=== PATIENT | female | born 1990 | race Hispanic/Latino ===

== ENCOUNTER 2023-01-01 06:22 | Inpatient (IN) | payer OTHER ==
[2022-12-30 13:12] LABS: Hematocrit 34.8 % (34.9-44.5); Hemoglobin 11.7 g/dL (12.0-15.5); Platelet Count 295 10x3/uL (150-450)
[2022-12-30 13:51] LABS: Syphilis Antibody Nonreactive (Nonreactive); Syphilis Antibody Index 0.03 S/CO (<1.00 Non-Reactive)
[2022-12-30 13:52] LABS: HBSAg Index 0.22 S/CO (0-0.99); Hep B Surf Ag Non-Reactive S/CO (NonReactive)
[2023-01-01 07:13] VITALS: BMI 39.4
[2023-01-01 07:54] LABS: Fetal Membranes Rupture No Membranes Rupture (No Rupture)
[2023-01-01] MEDS ORDERED: hydrALAZINE 20 MG/ML VIAL SLOW IVP PRN ×2 (08:28→09:19)
[2023-01-01] MEDS ORDERED: Acetaminophen 500 MG TAB PO SCH (08:30)
[2023-01-01] MEDS ORDERED: Tranexamic Acid 1,000 MG/10 ML VIAL IVP PRN (09:19)
[2023-01-01] MEDS ORDERED: Misoprostol 200 MCG TAB PR PRN (09:19)
[2023-01-01] MEDS ORDERED: Methylergonovine 0.2 MG/ML VIAL IM PRN (09:19)
[2023-01-01] MEDS ORDERED: Promethazine HCl 25 MG/ML VIAL IM PRN ×2 (09:19→10:51)
[2023-01-01] MEDS ORDERED: Bicitra 30 ML UDCUP PO PRN (09:19)
[2023-01-01] MEDS ORDERED: Ondansetron PF 4 MG/2 ML Vial IVP PRN ×3 (09:19→10:51)
[2023-01-01] MEDS ORDERED: Famotidine/PF 20 mg/2ml Vial SLOW IVP PRN (09:19)
[2023-01-01] MEDS ORDERED: Oxytocin 30 units/NS 500 ML 500 ML IV SCH (09:30)
[2023-01-01] MEDS ORDERED: CEFAZOLIN 2 GM in Sodium Chloride 0.9% 100 ML IVPB SCH (09:30)
[2023-01-01] MEDS ORDERED: fentaNYL 50 mcg/mL 1 mL Vial ONE (09:31)
[2023-01-01] MEDS ORDERED: Morphine PF 10 MG/10 ML VIAL ONE (09:35)
[2023-01-01] MEDS ORDERED: fentaNYL 50 mcg/mL 1 mL Vial SLOW IVP PRN ×2 (09:37→10:51)
[2023-01-01] MEDS ORDERED: Phenylephrine 10 MG/ML VIAL ONE (10:33)
[2023-01-01] MEDS ORDERED: Ondansetron PF 4 MG/2 ML Vial ONE (10:33)
[2023-01-01] MEDS ORDERED: PHENYLEPHRINE-NS 100 MCG/ML 10 ML SYRINGE ONE (10:36)
[2023-01-01] MEDS ORDERED: Oxytocin 10 UNITS/ML VIAL ONE (10:36)
[2023-01-01] MEDS ORDERED: Naloxone HCl 0.4 mg/ml Vial IV PRN (10:51)
[2023-01-01] MEDS ORDERED: Meperidine HCl/PF 25 MG/ML VIAL SLOW IVP PRN (10:51)
[2023-01-01] MEDS ORDERED: diphenhydrAMINE 50 MG/ML VIAL IVP PRN (10:51)
[2023-01-01] MEDS ORDERED: Naloxone HCl 0.4 mg/ml Vial IVP PRN ×2 (10:51)
[2023-01-01] MEDS ORDERED: Moisturizing Cream (Eucerin) 113 GM JAR TOP PRN (10:51)
[2023-01-01] MEDS ORDERED: Promethazine HCl 25 MG SUPP PR PRN (10:51)
[2023-01-01] MEDS ORDERED: Ketorolac Tromethamine 30 MG/ML VIAL IVP SCH (11:00)
[2023-01-01] MEDS ORDERED: Communication Order-Pharmacy FS SCH (11:00)
[2023-01-01] MEDS ORDERED: ePHEDrine Sulfate 50 MG/10 ML VIAL ONE (11:54)
[2023-01-01] MEDS: Ketorolac Tromethamine 30 MG/ML VIAL IVP PRN (20:03)
[2023-01-02] MEDS: Ketorolac Tromethamine 30 MG/ML VIAL IVP PRN (04:23)
[2023-01-02] MEDS: Lactated Ringer's 1,000 ML IV SCH ×2 (07:32→07:33)
[2023-01-02] MEDS ORDERED: Simethicone Chewable 80 MG TAB PO PRN (09:12)
[2023-01-02] MEDS ORDERED: Lanolin Ointment 7 GM TUBE TOP PRN (09:12)
[2023-01-02] MEDS ORDERED: Ondansetron PF 4 MG/2 ML Vial IVP PRN (09:12)
[2023-01-02] MEDS ORDERED: Bisacodyl 10 MG SUPP PR PRN (09:12)
[2023-01-02] MEDS ORDERED: diphenhydrAMINE 25 MG CAP PO PRN (09:12)
[2023-01-02] MEDS ORDERED: Boostrix 0.5 ML (Tdap) VIAL (>/=7 yrs of age) IM ONE (09:12)
[2023-01-02] MEDS ORDERED: Meperidine HCl/PF 25 MG/ML VIAL IM PRN (09:12)
[2023-01-02] MEDS ORDERED: hydrALAZINE 20 MG/ML VIAL SLOW IVP PRN (09:12)
[2023-01-02] MEDS ORDERED: Promethazine HCl 25 MG/ML VIAL IM PRN (09:12)
[2023-01-02] MEDS: Ketorolac Tromethamine 30 MG/ML VIAL IVP SCH ×2 (09:58→16:59)
[2023-01-02] MEDS: HYDROcodone/Acetaminophen 5/325 mg Tablet PO PRN ×3 (09:59→18:21)
[2023-01-02 10:14] LABS: Hematocrit 30.1 % (34.9-44.5); Hemoglobin 9.9 g/dL (12.0-15.5); Mean Corpuscular HGB CONC 32.9 g/dL (32.0-36.0); Mean Corpuscular Hemoglobin 28.4 pg (27.0-33.0); Mean Corpuscular Volume 86.5 fl (81.6-98.3); Mean Platelet Volume 11.5 fl (7.4-10.4); Platelet Count 217 10x3/uL (150-450); RBC Distribution Width 14.3 % (11.5-14.5); Red Blood Cell (RBC) Count 3.48 10x6/uL (3.90-5.03); White Blood Cell (WBC) Count 9.2 10x3/uL (3.5-10.5)
[2023-01-02] MEDS: Ferrous Sulfate 325 MG TAB PO SCH (19:44)
[2023-01-02] MEDS: Docusate 100 MG CAP PO SCH (19:44)
[2023-01-02] MEDS: Ibuprofen 800 MG TAB PO SCH (21:56)
[2023-01-03] MEDS: HYDROcodone/Acetaminophen 5/325 mg Tablet PO PRN ×2 (01:34→21:29)
[2023-01-03] MEDS: Ibuprofen 800 MG TAB PO SCH ×3 (05:57→21:29)
[2023-01-03] MEDS: Docusate 100 MG CAP PO SCH ×2 (08:55→21:29)
[2023-01-03] MEDS: Prenatal Vitamin 1 TAB PO SCH (08:55)
[2023-01-03] MEDS: Ferrous Sulfate 325 MG TAB PO SCH ×2 (08:55→21:28)
[2023-01-04] MEDS: Ibuprofen 800 MG TAB PO SCH ×2 (05:53→13:40)
[2023-01-04 08:07] VITALS: BP 88/53; TEMP 98.5
[2023-01-04] MEDS: Prenatal Vitamin 1 TAB PO SCH (08:41)
[2023-01-04] MEDS: Docusate 100 MG CAP PO SCH (08:41)
[2023-01-04] MEDS: Ferrous Sulfate 325 MG TAB PO SCH (08:41)
[2023-01-04] MEDS: HYDROcodone/Acetaminophen 5/325 mg Tablet PO PRN (08:41)
== END 2023-01-04 18:00 | disposition home or self-care (01) | DRG 788 ==
LOC: CSHLD/OP 06:22 → CSHLD 09:19 → CSHPP 18:20
PROVIDERS: ADMIT Family Medicine; ATTEND Family Medicine
PROC: 10D00Z1 Extraction of Products of Conception, Low, Open Approach (ICD-10-PCS; principal; 2023-01-01)
DX: O34.211 Maternal care for low transverse scar from previous cesarean delivery (principal); O42.02 Full-term premature rupture of membranes, onset of labor within 24 hours of rupture; Z3A.39 39 weeks gestation of pregnancy; Z37.0 Single live birth; Z91.040 Latex allergy status
CPT/HCPCS: 36415; 51702; 84112; 85014; 85018; 85027; 85049; 86780; 86850; 86900; 86901; 87340; 99285; J1885; J2175; J2274; J2370; J2405; J2550; J2590; J3010; J3490

== ENCOUNTER 2024-09-25 13:01 | Day surgery (SDC) | payer OTHER ==
[2024-09-25 13:44] VITALS: BMI 39.3
== END 2024-09-25 15:46 | disposition home or self-care (01) ==
LOC: CSHLD/OP 13:01
PROVIDERS: ATTEND Family Medicine
DX: O47.1 False labor at or after 37 completed weeks of gestation (principal); O34.211 Maternal care for low transverse scar from previous cesarean delivery; Z3A.38 38 weeks gestation of pregnancy; Z87.59 Personal history of other complications of pregnancy, childbirth and the puerperium; Z91.040 Latex allergy status; Z79.899 Other long term (current) drug therapy
CPT/HCPCS: 99283

== ENCOUNTER 2024-09-27 12:50 | Inpatient (IN) | payer OTHER ==
[2024-09-27 13:21] VITALS: BMI 38.9
[2024-09-27] MEDS ORDERED: Diphenoxylate HCl/Atropine Tablet PO PRN (14:40)
[2024-09-27] MEDS ORDERED: hydrALAZINE 20 MG/ML VIAL SLOW IVP PRN ×2 (14:40→22:01)
[2024-09-27] MEDS ORDERED: Carboprost 250 MCG/ML AMP IM PRN (14:40)
[2024-09-27] MEDS ORDERED: Ondansetron PF 4 MG/2 ML Vial IVP PRN ×4 (14:40→22:01)
[2024-09-27] MEDS ORDERED: Methylergonovine 0.2 MG/ML VIAL IM PRN (14:40)
[2024-09-27] MEDS ORDERED: Bicitra 30 ML UDCUP PO PRN (14:40)
[2024-09-27] MEDS ORDERED: Famotidine/PF 20 mg/2ml Vial SLOW IVP PRN (14:40)
[2024-09-27] MEDS ORDERED: Tranexamic Acid 1,000 MG/10 ML VIAL IVP PRN (14:40)
[2024-09-27] MEDS ORDERED: Oxytocin 30 units/NS 500 ML 500 ML IV SCH (14:45)
[2024-09-27 15:21] LABS: Hematocrit 35.6 % (34.9-44.5); Hemoglobin 11.2 g/dL (12.0-15.5); Mean Corpuscular Hemoglobin 26.2 pg (27.0-33.0); Mean Corpuscular Volume 83.4 fL (81.6-98.3); Platelet Count 313 10x3/uL (150-450); Red Blood Cell (RBC) Count 4.27 10x6/uL (3.90-5.03); White Blood Cell (WBC) Count 7.98 10x3/uL (3.5-10.5)
[2024-09-27 16:00] LABS: Syphilis Antibody Index 0.05 S/CO (<1.00 Non-Reactive)
[2024-09-27 16:01] LABS: Hep B Surf Ag - L&D Non-Reactive S/CO (NonReactive)
[2024-09-27] MEDS: CEFAZOLIN 3 GM, Admixture Fee 1 EACH in Sodium Chloride 0.9% 100 ML IVPB SCH (16:55)
[2024-09-27] MEDS ORDERED: diphenhydrAMINE 50 MG/ML VIAL IVP PRN (18:59)
[2024-09-27] MEDS ORDERED: Meperidine HCl/PF 25 MG (1 mL) VIAL SLOW IVP PRN (18:59)
[2024-09-27] MEDS ORDERED: Communication Order-Pharmacy FS SCH (19:00)
[2024-09-27] MEDS ORDERED: Ketorolac Tromethamine 30 MG (1 mL) VIAL IVP SCH (19:00)
[2024-09-27] MEDS: Ondansetron PF 4 MG/2 ML Vial ONE (20:24)
[2024-09-27] MEDS: Phenylephrine 40 MG/NS 250 ML 250 ML ONE (20:24)
[2024-09-27] MEDS: Dexamethasone 10 MG/ML VIAL ONE (20:24)
[2024-09-27] MEDS: Oxytocin 10 UNITS/ML VIAL ONE ×2 (20:24)
[2024-09-27] MEDS: Ketorolac Tromethamine 30 MG (1 mL) VIAL IVP SCH (20:25)
[2024-09-27] MEDS: PHENYLEPHRINE-NS 100 MCG/ML 10 ML SYRINGE ONE (20:25)
[2024-09-27] MEDS: Ketorolac Tromethamine 30 MG (1 mL) VIAL ONE (20:25)
[2024-09-27] MEDS ORDERED: Lanolin Ointment 7 GM TUBE TOP PRN (22:01)
[2024-09-27] MEDS ORDERED: diphenhydrAMINE 25 MG CAP PO PRN (22:01)
[2024-09-27] MEDS ORDERED: Bisacodyl 10 MG SUPP PR PRN (22:01)
[2024-09-27] MEDS: Ferrous Sulfate 325 MG TAB PO SCH (22:17)
[2024-09-28] MEDS: Ketorolac Tromethamine 30 MG (1 mL) VIAL IVP SCH (01:00)
[2024-09-28 06:08] LABS: Hematocrit 29.4 % (34.9-44.5); Hemoglobin 9.4 g/dL (12.0-15.5); Mean Corpuscular Hemoglobin 27.0 pg (27.0-33.0); Mean Corpuscular Volume 84.5 fL (81.6-98.3); Platelet Count 247 10x3/uL (150-450); Red Blood Cell (RBC) Count 3.48 10x6/uL (3.90-5.03); White Blood Cell (WBC) Count 13.03 10x3/uL (3.5-10.5)
[2024-09-28] MEDS ORDERED: Meperidine HCl/PF 25 MG (1 mL) VIAL IM PRN (08:00)
[2024-09-28] MEDS: HYDROcodone/Acetaminophen 5/325 mg Tablet PO PRN ×2 (08:52→22:58)
[2024-09-28] MEDS: Simethicone Chewable 80 MG TAB PO PRN (14:18)
[2024-09-28] MEDS: Ferrous Sulfate 325 MG TAB PO SCH (18:47)
[2024-09-28] MEDS: Ibuprofen 800 MG TAB PO SCH (21:37)
[2024-09-30 07:37] VITALS: BP 96/59; TEMP 98
[2024-09-30] MEDS: Boostrix 0.5 ML (Tdap) VIAL (>/=7 yrs of age) IM ONE (08:23)
== END 2024-09-30 13:00 | disposition home or self-care (01) | DRG 788 ==
LOC: CSHLD/OP 12:50 → CSHLD 16:56 → CSHPP 21:35
PROVIDERS: ADMIT Family Medicine; ATTEND Family Medicine
PROC: 10D00Z1 Extraction of Products of Conception, Low, Open Approach (ICD-10-PCS; principal; 2024-09-27)
PROC: 4A1HXCZ Monitoring of Products of Conception, Cardiac Rate, External Approach (ICD-10-PCS; 2024-09-27)
DX: O76 Abnormality in fetal heart rate and rhythm complicating labor and delivery (principal); O34.211 Maternal care for low transverse scar from previous cesarean delivery; Z3A.38 38 weeks gestation of pregnancy; Z79.899 Other long term (current) drug therapy; Z98.890 Other specified postprocedural states; Z91.040 Latex allergy status; Z37.0 Single live birth
CPT/HCPCS: 36415; 85027; 86780; 86850; 86900; 86901; 87340; 99285; J0690; J1100; J1885; J2274; J2405; J2550; J2590; J3010